=== PATIENT | female | born 1990 | race Two or more races ===

== ENCOUNTER 2018-11-02 10:56 | Outpatient (CLI) | payer SELFPAY ==
[~2018-11-02] VITALS: Ht 162.6 cm; Wt 92.1 kg
[2018-11-02 11:09] VITALS: BP 126/94; PULSE 109; RESP 20
[2018-11-02] MEDS ORDERED: PREN1TAB13 PO (11:10)
[2018-11-02 11:48] VITALS: Ht 162.6 cm; Wt 92.1 kg
--- NOTE | 2018-11-02 13:40 | PN ---
Triage Information Date/Time Nov 02, 2018 Reason for visit: SROM Weeks of Gestation 38w 4d /Para 1/0 Diabetes: none Hypertention: none Additional information PMHx: none. PSHx: none. NKDA Objective Vital Signs Date Temp Pulse Resp B/P (MAP) Pulse Ox O2 O2 Flow FiO2 Time Delivery Rate 11/02/18 97.7 109 20 126/94 Room Air 11:09 (105) Heart Rate: 130's Heart Rate Comments Accels to 160 bpm. No decels. Contractions: 6-10 Minutes Apart Exam 60%/1/-3. Results/Medications Results 24 hrs Laboratory Tests Test 11/02/18 11:30 11/02/18 11:40 Urine Color YELLOW Urine Clarity SLIGHTLY CLOUDY A Urine pH 6.0 Urine Specific [place] 1.012 Urine Ketones NEGATIVE Urine Nitrite NEGATIVE Urine Bilirubin NEGATIVE Urine Urobilinogen NEGATIVE Urine Leukocyte Esterase 3+ H Urine Microscopic RBC 1 Urine Microscopic WBC 22 H Urine Squamous Epithelial Cells FEW Urine Bacteria FEW A Urine Hemoglobin 2+ H Urine Glucose NEGATIVE Urine Total Protein NEGATIVE Membranes Rupture NEGATIVE Imaging Results BPP 8/8. BELEN 13.4 cm. VTX. Disposition: Discharge Assessment/Plan A: IUP at 38w 4d. Intact membranes. False labor. P: D/C home. Labor precautions and kick counts reviewed with the pt. DEMETRIA ROGER MD Nov 02, 2018 13:40
== END 2018-11-02 13:48 | disposition home or self-care (01) ==
LOC: CANPRECLI → L-D 10:56 → OBT 10:56
PROVIDERS: ATTEND Specialist
DX: O47.1 False labor at or after 37 completed weeks of gestation (principal); Z3A.38 38 weeks gestation of pregnancy
CPT/HCPCS: 76818; 81001; 84112; G0463